=== PATIENT | female | born 1965 | race Caucasian/White ===

== ENCOUNTER 2016-06-29 07:21 | Day surgery (SDC) | payer OTHER ==
[2016-06-29] MEDS ORDERED: LR 1,000 ML ONE ×2 (07:32→10:02)
[2016-06-29] MEDS ORDERED: REGLAN ONE (07:32)
[2016-06-29] MEDS ORDERED: PEPCID ONE (07:32)
[2016-06-29] MEDS ORDERED: KEFZOL 1 GM/D5W 50 ML ONE (07:33)
[2016-06-29 08:07] LABS: HEMATOCRIT 37.2 % (37.0-47.0); HEMOGLOBIN 12.4 g/dL (12.0-16.0); MCH 30.1 PG (27-31); MCHC 33.3 g/dL (33-37); MCV 90.3 FL (81-99); MPV 9.2 FL (7.4-10.4); RBC 4.12 XMIL (4.2-5.4)
[2016-06-29] MEDS ORDERED: TRANSDERM-SCOP ONE (08:20)
[2016-06-29] MEDS ORDERED: ZOFRAN ONE (08:22)
[2016-06-29] MEDS ORDERED: DILAUDID ONE (08:22)
[2016-06-29] MEDS ORDERED: XYLOCAINE 2% JELLY UROJECT ONE (09:11)
[2016-06-29] MEDS ORDERED: B & O 16A SUPP ONE (09:54)
[2016-06-29] MEDS ORDERED: XYLOCAINE-MPF 2% ONE (10:17)
[2016-06-29] MEDS ORDERED: DECADRON ONE (10:18)
[2016-06-29] MEDS: DEMEROL ONE ×2 (10:19→10:38)
[2016-06-29] MEDS ORDERED: MORPHINE ONE (10:43)
[2016-06-29] MEDS ORDERED: DIPRIVAN 1% ONE (10:54)
[2016-06-29] MEDS ORDERED: FENTANYL ONE (10:54)
--- NOTE | 2016-06-29 11:04 | OPERATIVE NOTE ---
PROCEDURE DATE: 06/29/2016 PREOPERATIVE DIAGNOSES: 1. Cystocele with prolapse. 2. Microscopic hematuria. 3. Chronic pelvic pain. 4. Vulvodynia. 5. Rule out interstitial cystitis. POSTOPERATIVE DIAGNOSES: 1. Cystocele with prolapse. 2. Chronic trigonal cystitis. 3. No evidence of interstitial cystitis. 4. Urethral stenosis. 5. Chronic granulation tissue in the apex of the vagina. PROCEDURE: Urethral dilatation, cystoscopy, bilateral retrograde pyelogram, vaginoscopy, and biopsy of the granulation tissue of the vagina. ANESTHESIA: General. SURGEON: Hugo Puente MD. PROCEDURE IN DETAIL: The patient was explained about the surgical procedure including the risks and benefits. The patient's boyfriend was at the bedside. She was induced with general anesthesia in the dorsal lithotomy position. She was prepped and draped. The cystocele with a prolapse was obvious. There was urethral stenosis and the urethra was dilated to 26-Arabic. A #21 rigid cystoscope was introduced into the bladder and the bladder inspected. Both the ureteral orifices were identified and retrograde pyelogram revealed normal upper tracts. There was evidence of chronic trigonal cystitis. We decided to do the intravesical instillation of silver nitrate in the office later. Thereafter, vaginoscopy was done with the same rigid cystoscope. The vagina was normal except one area of granulating tissue in the apex of the vagina. This was biopsied with the bladder biopsy forceps. Further plan would be to treat her with some antibiotics and I have given her some ciprofloxacin. We will do the silver nitrate in the office. We will talk about the cystocele repair. The patient tolerated the procedure well and returned to the recovery room in stable condition. [facility]
[2016-06-29 12:02] VITALS: BP 136/78
--- NOTE | 2016-06-29 13:37 | Diag Imaging Result Document ---
PROCEDURE NAME: RETROGRADES 2 OR 3 FILMS - 06/29/2016 BILATERAL RETROGRADE PYELOURETEROGRAM: COMPARISON: None available. FINDINGS: Five spot fluoroscopic images were provided during bilateral retrograde pyeloureterogram by Dr. Puente. The right and left ureters appear to be grossly normal in course and caliber. No discrete ureteral stricture or filling defect is identified. There is no evidence of hydronephrosis. No definite filling defect can be identified in the renal collecting systems. IMPRESSION: As above. Please correlate with live fluoroscopic imaging.
== END 2016-06-29 11:50 | disposition home or self-care (01) ==
LOC: OPS 07:21 → EEVIPCON 11:00 → OPS 11:50
PROVIDERS: ATTEND Specialist
DX: N99.3 Prolapse of vaginal vault after hysterectomy (principal); N30.31 Trigonitis with hematuria; A58 Granuloma inguinale; N35.9 Urethral stricture, unspecified; R10.2 Pelvic and perineal pain; N76.0 Acute vaginitis; R30.9 Painful micturition, unspecified; Z62.810 Personal history of physical and sexual abuse in childhood; N94.819 Vulvodynia, unspecified; Z79.899 Other long term (current) drug therapy; Z79.82 Long term (current) use of aspirin
CPT/HCPCS: 74420; 85027; 88304; 88312; J0690; J1100; J1170; J2175; J2270; J2405; J3010; J7120; Q9966